=== PATIENT | female | born 1975 | race Two or more races ===

== ENCOUNTER 2016-06-21 12:54 | Emergency (ER) | payer SELFPAY ==
[2016-06-21 13:52] VITALS: BP 118/79
--- NOTE | 2016-06-21 14:29 | RAD ---
Right foot, 3 views, 06/21/2016: History: Injury, pain No fracture or dislocation is identified. There is a small inferior calcaneal spur. IMPRESSION: No acute bony abnormality is detected.
--- NOTE | 2016-06-21 15:03 | PHYS DOC ---
Past Medical History Past Medical History: No Pertinent History Past Surgical History: No Surgical History Alcohol Use: Occasionally Drug Use: None Adult General Chief Complaint Chief Complaint: FOOT INJURY PAIN [facility] HPI Patient is a 41 year old female presents emergency department stating that Tuesday she jumped up and came down on her right foot. She states that she landed on concrete. Patient states that she has had increased pain on the right heel whenever she tries to bear weight and walk. Patient denies any numbness or tingling into the toes. She denies any pain or discomfort in the ankles. She denies any discomfort in the knees. Review of Systems Review of Systems Constitutional: Denies fever or chills [] Eyes: Denies change in visual acuity, redness, or eye pain [] HENT: Denies nasal congestion or sore throat [] Respiratory: Denies cough or shortness of breath [] Cardiovascular: No additional information not addressed in HPI [] GI: Denies abdominal pain, nausea, vomiting, bloody stools or diarrhea [] : Denies dysuria or hematuria [] Musculoskeletal: Denies back pain. C/o right heel pain and discomfort Integument: Denies rash or skin lesions [] Neurologic: Denies headache, focal weakness or sensory changes [] Allergies Allergies Allergies Coded Allergies Type Severity Reaction Last Updated Verified No Known Drug Allergies 06/21/16 No Physical Exam Physical Exam Constitutional: Well developed, well nourished, no acute distress, non-toxic appearance. [] HENT: Normocephalic, atraumatic, bilateral external ears normal, oropharynx moist, no oral exudates, nose normal. [] Eyes: PERRLA, EOMI, conjunctiva normal, no discharge. [] Neck: Normal range of motion, no tenderness, supple, no stridor. [] Cardiovascular:Heart rate regular rhythm Lungs & Thorax: Bilateral breath sounds clear to auscultation [] Skin: Warm, dry, no erythema, no rash. [] Back: No tenderness Extremities: Right heel tenderness, no cyanosis, no clubbing, ROM intact, no edema. Increased tenderness upon palpation to the right heel. No discoloration or bruising noted. Peripheral pulses 2+ cap refill brisk less than 2 seconds. Patient is able to move the ankle and the toes without difficulty. Neurologic: Alert and oriented X 3, normal motor function, normal sensory function, no focal deficits noted. [] Psychologic: Affect normal, judgement normal, mood normal. [] Current Patient Data Vital Signs Vital Signs Date Time Temp Pulse Resp B/P Pulse Ox O2 Delivery O2 Flow Rate FiO2 06/21/16 13:52 98.2 94 18 94 Room Air 98.2 EKG EKG [] Radiology/Procedures Radiology/Procedures [][facility] [address] [place] [address] IMAGING REPORT Signed PATIENT: MIGUEL ELIZABETH ACCOUNT: [id number] : 1975 LOCATION: ER AGE: 41 SEX: F EXAM STATUS: REG ER ORD. PHYSICIAN: CA HOWELL NP REASON: pain and discomfort PROCEDURE: FOOT RIGHT 3V Right foot, 3 views, 06/21/2016: History: Injury, pain No fracture or dislocation is identified. There is a small inferior calcaneal spur. IMPRESSION: No acute bony abnormality is detected. DICTATED and SIGNED BY: KACEY RAMIREZ MD DATE: 06/21/16 1425 CC: CA HOWELL [employer]; NO PCP ~ Course & Med Decision Making Course & Med Decision Making Pertinent Labs and Imaging studies reviewed. (See chart for details) Patient will be discharged home in a postop shoe. Recommendations to follow-up with orthopedic in the next week she continues to have discomfort. Ice packs on 20 minutes off 20 minutes several times a day. Tylenol and ibuprofen for pain and discomfort. Patient agrees with discharge instructions treatment regimens and follow-up recommendations. Since symptoms to return back to emergency department as been provided. [] Dragon Disclaimer Dragon Disclaimer This electronic medical record was generated, in whole or in part, using a voice recognition dictation system. Departure Departure Impression: Primary Impression: Pain of right heel Disposition: HOME, SELF-CARE Condition: STABLE Referrals: NO PCP (PCP) LORI COOK MD Patient Instructions: Foot Contusion, [id number] Additional Instructions: Ice packs on 20 minutes off 20 minutes several times a day. Elevation as much as possible. Tylenol and ibuprofen for pain and discomfort. Wear the postop shoe for the next week until you follow up with orthopedic. Follow-up with orthopedic within the next week. Return back to emergency prior signs symptoms become worse. CA HOWELL NP Jun 21, 2016 15:03
== END 2016-06-21 15:08 | disposition home or self-care (01) ==
LOC: ER 12:54
DX: M79.671 Pain in right foot (principal)
CPT/HCPCS: 73630; 99284